=== PATIENT | male | born 2000 | race Caucasian/White ===

== ENCOUNTER 2023-11-27 19:13 | Outpatient (REF) | payer OTHER, SELFPAY ==
--- NOTE | ~2023-11-27 | MR_ITS ---
EXAMINATION: MR ELBOW WITHOUT CONTRAST, LEFT CLINICAL INFORMATION: Left elbow pain and numbness. Ulnar collateral ligament reconstruction and ulnar nerve transposition. Paresthesias into fingers. Ulnar nerve injury. COMPARISON: None available. TECHNIQUE: MRI of the elbow was performed using routine sequences on a high-field scanner. FINDINGS: ULNAR COLLATERAL LIGAMENT: Extensive postsurgical change associated with the ulnar collateral ligament consistent with prior ligament reconstruction. There is heterogeneity within the reconstructed ligament without evidence of a recurrent tear. Findings likely represent the postsurgical result. Orthopedic anchors within the medial epicondyle and sublime tubercle without evidence of hardware complication. COMMON FLEXOR TENDON: Adjacent postsurgical change. No common flexor tendon tear. RADIAL COLLATERAL LIGAMENT: Intact. COMMON EXTENSOR TENDON: Intact. BICEPS/TRICEPS TENDON: Intact. ARTICULAR CARTILAGE/BONE: Postsurgical change of the medial epicondyle and sublime tubercle. Minimal increased T2 signal within the proximalmost aspect of the medial epicondyle which may be artifactual or represent minimal marrow edema. No associated fracture line. No additional abnormal marrow signal. No fracture or dislocation. No osteochondral lesion. ULNAR NERVE: Postsurgical change consistent with ulnar nerve transposition. Minimal thickening of the nerve distal to the medial epicondyle with slightly increased T2 signal (axial image 18/30) which could represent normal variation versus minimal neuritis. No evidence of disruption. Prominent artifact adjacent to the more proximal nerve. JOINT FLUID/SOFT TISSUES: No significant joint effusion. No soft tissue mass or organized fluid collection. MR/MR elbow LT wo con IMPRESSION: 1. Postsurgical change consistent with ulnar collateral ligament reconstruction. No evidence of recurrent ligament tear. 2. Postsurgical change of the medial epicondyle and sublime tubercle without evidence of hardware complication. Minimal increased T2 signal within the proximalmost aspect of the medial epicondyle which may be artifactual or represent minimal marrow edema. No associated fracture line. 3. Postsurgical change consistent with ulnar nerve transposition. Minimal thickening of the nerve distal to the medial epicondyle with slightly increased T2 signal which could represent normal variation versus minimal neuritis. No evidence of disruption. Electronically signed by: Joshua Rhodes MD 12/04/2023 02:38 PM EDT [facility]station: [email or web address]
== END 2023-11-27 19:14 | disposition home or self-care (01) ==
LOC: HO.MRI 19:13
PROVIDERS: PCP Pediatrics; Visit Provider Student in an Organized Health Care Education/Training Program
DX: S44.02XD Injury of ulnar nerve at upper arm level, left arm, subsequent encounter (principal)
CPT/HCPCS: 73221